=== PATIENT | female | born 1995 | race Caucasian/White ===

== ENCOUNTER 2016-12-31 23:12 | Emergency (ER) | payer OTHER ==
[~2016-12-31] VITALS: Ht 175.3 cm; Wt 106.0 kg
[2016-12-31 23:40] VITALS: BP 132/93; PULSE 94; RESP 18; TEMP 98.9; O2SAT 98
--- NOTE | 2017-01-01 01:07 | PD ---
HPI Chief Complaint: ENT Complaint Time Seen by Provider: 01:03 Travel History International Travel<30 days: No Contact w/Intl Traveler<30days: No Traveled to known affect area: No History of Present Illness HPI 21-year-old female presents to the emergency department by private transportation for one week of sore throat and now 1 day of ear pain. Patient denies fever chills. Patient states she has taken Tylenol without relief. Patient denies other concerns or complaints. The patient rates her pain 5/10 in intensity. Patient denies . PFSH Past Medical History Narrative Medical Negative past medical history negative surgical history no tobacco use nursing notes reviewed Medical History: Denies Significant Hx Diminished Hearing: No Tetanus Vaccination: Unknown Influenza Vaccination: No ?: Not LMP: 12/24/16 : 0 Para: 0 Miscarriage: 0 : 0 Past Surgical History Surgical History: No Previous Surgery Social History Alcohol Use: No Tobacco Use: No Substance Use: No Allergies-Medications (Allergen,Severity, Reaction): Coded Allergies: [place] (Verified Allergy, Intermediate, Hives, 01/01/17) Reported Meds & Prescriptions Reported Meds & Active Scripts Active No Active Prescriptions or Reported Medications Review of Systems Except as stated in HPI: all other systems reviewed are Neg General / Constitutional: No: Fever, Chills HENT: Positive: Sore Throat, Congestion, Earache Cardiovascular: No: Chest Pain or Discomfort Respiratory: No: Shortness of Breath Gastrointestinal: No: Abdominal Pain Genitourinary: No: Flank Pain Musculoskeletal: No: Pain Skin: No Rash Neurologic: No: Weakness Psychiatric: No: Anxiety Hematologic/Lymphatic: No: Lymph Node Enlargement Physical Exam Narrative GENERAL: Well-developed well-nourished female in no acute distress no respiratory distress; no stridor or hoarseness SKIN: Warm and dry. HEAD: Normocephalic. EYES: No scleral icterus. No injection or drainage. ENT: Mucous membranes moist airway is patent posterior pharynx tonsillar edema with exudative change; right tympanic membranes no redness dullness or loss of landmarks left tympanic membrane red dull no perforation NECK: Supple, trachea midline. No JVD or lymphadenopathy. CARDIOVASCULAR: Regular rate and rhythm without murmurs, gallops, or rubs. RESPIRATORY: Breath sounds equal bilaterally. No accessory muscle use. GASTROINTESTINAL: Abdomen soft, non-tender, nondistended. MUSCULOSKELETAL: No cyanosis, or edema. BACK: Nontender without obvious deformity. No CVA tenderness. Data Data Last Documented VS Vital Signs Date Time Temp Pulse Resp B/P Pulse Ox O2 Delivery O2 Flow Rate FiO2 01/01/17 01:00 94 18 12/31/16 23:40 98.9 132/93 98 Orders Group A Rapid Strep Screen (01/01/17 01:03) Strep Culture (Group A) (01/01/17 01:26) MDM Medical Decision Making Medical Screen Exam Complete: Yes Emergency Medical Condition: Yes Medical Record Reviewed: Yes Interpretation(s) RSA: negative Differential Diagnosis Viral syndrome, tonsillitis, sinusitis, otitis media Narrative Course Rapid strep antigen specimen collected and sent for resulting Rapid strep antigen negative; patient given ibuprofen and first dose of antibiotic in the emergency department Patient stable for outpatient management and follow-up with primary care provider Diagnosis Primary Impression: Left otitis media Additional Impression: Tonsillitis Referrals: Primary Care Physician call for appointment Patient Instructions: General Instructions Departure Forms: Tests/Procedures, Work Release Special Instructions: no work x 1 day Additional Instructions: Increase fluid hydration Take Tylenol/acetaminophen every 4 hours for fever 100.4F or greater for minor pain Take ibuprofen/Advil/Motrin 800 mg as often as every 8 hours as needed for pain associated with inflammation or for fever 100.4F or greater Complete course of antibiotic as prescribed Return to the emergency department for any concerns or change in condition . With primary care provider call office in Tuesday to schedule follow-up appointment No work times one day Med/Other Pt SpecificInfo: Prescription(s) given Scripts Amoxicillin 500 Mg Stv126 Mg PO TID 10 Days Ref 0 Prov:Meme Duarte MD 01/01/17 Disposition: 01 DISCHARGE HOME Condition: Stable Meme Duarte MD Jan 01, 2017 01:07
[2017-01-01] MEDS ORDERED: AMOX500T PO (02:03)
[2017-01-01] MEDS ORDERED: SULFAMETHOXAZOLE-TRIMETHOPRIM DS 800-160 MG TAB PO ONE (02:15)
[2017-01-01] MEDS ORDERED: IBUPROFEN 800 MG TAB PO ONE (02:15)
== END 2017-01-01 02:27 | disposition home or self-care (01) ==
LOC: PHED 23:12
DX: H66.92 Otitis media, unspecified, left ear (principal); J03.90 Acute tonsillitis, unspecified
CPT/HCPCS: 87081; 87880; 99283